=== PATIENT | female | born 1970 | race Caucasian/White ===

== ENCOUNTER 2017-05-13 12:49 | Outpatient (CLI) | payer MEDICAID ==
[2017-05-13 18:12] LABS: BASOPHILS % (AUTO) 0.5 %; EOSINOPHILS # (AUTO) 0.1 10^3/uL (0.0-0.7); EOSINOPHILS % (AUTO) 1.9 %; HCT - HEMATOCRIT 39.2 % (37.0-47.0); HGB - HEMOGLOBIN 12.9 g/dL (12.0-16.0); LYMPHOCYTES # (AUTO) 0.9 10^3/uL (1.5-3.5); LYMPHOCYTES % (AUTO) 11.7 %; MEAN CORPUSCULAR HGB CONC 32.9 g/dL (32.0-36.0); MEAN CORPUSCULAR VOLUME 97.3 fL (81.0-99.0); MEAN PLATELET VOLUME 8.2 fL (7.9-10.8); MONOCYTES # (AUTO) 0.5 10^3/uL (0.0-1.0); MONOCYTES % (AUTO) 6.5 %; NEUTROPHILS % (AUTO) 79.4 %; RED BLOOD COUNT 4.03 10^6/uL (4.20-5.40); RED CELL DISTRIBUTION WIDTH 12.3 % (12.0-15.0); UNCORRECTED WHITE BLOOD COUNT 7.5 x10^3/uL; WHITE BLOOD COUNT 7.5 x10^3/uL (4.8-10.8)
[2017-05-13 18:18] LABS: BILIRUBIN,TOTAL 0.5 mg/dL (0.2-1.0); CREATININE 0.8 mg/dL (0.4-1.0); POTASSIUM 3.7 mmol/L (3.5-5.0); TOTAL PROTEIN 8.1 g/dL (6.7-8.2)
== END 2017-05-13 12:50 | disposition home or self-care (01) ==
LOC: LAB.F 12:49
PROVIDERS: ATTEND Nurse Practitioner Family
DX: R10.9 Unspecified abdominal pain (principal)
CPT/HCPCS: 36415; 80053; 82150; 83690; 85025

== ENCOUNTER 2017-07-23 08:44 | Emergency (ER) | payer MEDICAID ==
[2017-07-23] MEDS ORDERED: MUPIROCIN 2% OINT 1 GM TOP STA (09:42)
--- NOTE | 2017-07-23 09:43 | ED Physician Documentation ---
History of Present Illness - Stated complaint Stated Complaint: LEG WOUND - Chief complaint Chief Complaint: Ext Problem - History obtained from History obtained from: Patient - Additonal information Additional information: The patient is a 47-year-old female with history of discoid lupus, who presents with painful open wound on her left lower leg. She has had an open wound for many years, but it has become more painful during the past week, and has become malodorous. There has been no recent change in the appearance of the wound. She was treated with IV antibiotics about one year ago, and she has been treated with gentamicin cream topically the past with good results. She reports having a similar but smaller wound on the right leg, but it has remained unchanged. Review of Systems Constitutional: denies: Fever Nose: denies: Congestion Throat: denies: Sore throat Respiratory: denies: Cough GI: denies: Nausea, Vomiting Skin: reports: Lesions (Open sores on both lower extremities.) Musculoskeletal: reports: Extremity pain (left lower leg.). 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 07/23/17 Hydroxychloroquine [Plaquenil] DAILY 07/23/17 - Allergies Allergies/Adverse Reactions: Allergies Allergy/AdvReac Type Severity Reaction Status Date / Time amoxicillin Allergy Hives Verified 07/23/17 09:09 - Social History Does the pt smoke?: No Smoking Status: Never smoker Does the pt drink ETOH?: No Does the pt have substance abuse?: No PD ED PE NORMAL - Vitals Vital signs reviewed: Yes (Initially hypertensive.) - General General: Alert and oriented X 3, Well developed/nourished - HEENT HEENT: Atraumatic, Moist mucous membranes, Pharynx benign - Cardiac Cardiac: RRR, No murmur - Respiratory Respiratory: No respiratory distress, Clear bilaterally - Derm Derm: No rash - Extremities Extremities: No edema, No calf tenderness / cord, Other (There is an open ulcerative wound on the lateral aspect of the left lower leg, approximately 5 x 6 cm in size. A nonadherent dressing is a purulent odor. There is no surrounding erythema or lymphangitic streaking. There is chronic dark skin discoloration involving the entire anterior portion of her lower leg at that level. Distal neurovascular is intact. Examination of the right lower leg also reveals an open wound of approximately 1 x 3 cm in size, without associated drainage or erythema.) - Neuro Neuro: Alert and oriented X 3, No motor deficit, No sensory deficit, Normal speech Results - Vitals Vitals: Oxygen O2 Source Room air - Labs Labs: Microbiology 07/23/17 09:35 Wound Culture - Preliminary Leg - Left PD MEDICAL DECISION MAKING - ED course Complexity details: considered differential, d/w patient, d/w family ED course: The patient's presentation is significant for wound infection of the left lower leg, associated with chronic ulceration of many years duration in a patient with a history of discoid lupus. There is no clinical evidence of abscess, lymphangitis, or DVT. A swab of the wound was collected and sent to the lab for culture and sensitivity. Treatment in the emergency department included application of Bactroban topical ointment and wound dressing. She is being discharged with prescription for gentamicin cream. 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 Departure - Departure Disposition: 01 Home, Self Care Clinical Impression: Bilateral leg ulcer Qualifiers: Non-pressure ulcer stage: unspecified non-pressure ulcer stage Qualified Code(s ): L97.919 - Non-pressure chronic ulcer of unspecified part of right lower leg with unspecified severity Lupus Qualifiers: Lupus erythematosus form: discoid Qualified Code(s): L93.0 - Discoid lupus erythematosus Condition: Stable Instructions: ED Infec Skin Cellulitis Follow-Up: Ne Vasquez ARNP [Primary Care Provider] - Prescriptions: Gentamicin Sulfate 30 gm TP BID #30 oint...g. Comments: Clean the wound, and apply antibiotic ointment twice daily. Keep your left leg elevated as much the time as possible. Follow up with your primary physician within 1 week. Call to schedule appointment. You should ask her for referral to the wound care clinic. Return to the emergency department if you develop increasing redness, swelling, pain, or otherwise worsening symptoms. Discharge Date/Time: 07/23/17 10:21
[2017-07-23 10:23] VITALS: BP 138/74
== END 2017-07-23 10:21 | disposition home or self-care (01) ==
LOC: ED 08:44
DX: L97.929 Non-pressure chronic ulcer of unspecified part of left lower leg with unspecified severity (principal); L97.919 Non-pressure chronic ulcer of unspecified part of right lower leg with unspecified severity; L93.0 Discoid lupus erythematosus
CPT/HCPCS: 87070; 87181; 87205; 99283; A9270

== ENCOUNTER 2022-06-10 08:00 | Outpatient (CLI) | payer SELFPAY | END 2022-06-10 23:59 | disposition home or self-care (01) | LOC: LAB 08:00 | PROVIDERS: ATTEND Internal Medicine | DX: L97.909 Non-pressure chronic ulcer of unspecified part of unspecified lower leg with unspecified severity (principal) | CPT/HCPCS: 87070; 87181; 87205 ==